=== PATIENT | female | born 1970 | race Caucasian/White ===

== ENCOUNTER 2017-09-08 12:39 | Inpatient (IN) | payer OTHER ==
[~2017-09-08] VITALS: Ht 170.2 cm; Wt 62.8 kg
--- NOTE | ~2017-09-08 | PR ---
[place], [place] PROGRESS NOTE NAME: BONI RUTH [facility] #: [id number] UNIT #: [id number] ROOM: 421 DOCTOR: SCARLET ROSENBERG MD,RIYA BIRTHDATE: [birth year] DOS: 09/12/2017 SUBJECTIVE: She has a bronchoscopy done yesterday noted reduction in symptoms of cough, still noted significant cough for this patient or intensity and frequency has been decreased. The patient has been getting intravenous antibiotic with acute streptococcal pneumonia and acute bronchitis with MRSA. The patient denies symptoms of chest pain or hemoptysis. Wheezing has been decreasing. She was continued nicotine placement patches. OBJECTIVE: VITAL SIGNS: Normal temperature, respiratory rate 18, pulse 65, blood pressure 140/84 today. Pulse oxygen saturation on 2 liters 94% saturation. HEENT: No new change. NECK: Supple. CARDIOVASCULAR: S1, S2 audible. LUNGS: Moderate decreased breath sounds, mild expiratory wheezing, no crackles. ABDOMEN: Flat, soft, nontender. EXTREMITIES: Without any edema. MUSCULOSKELETAL: No deformities. GENITOURINARY: Cranial nerves are intact. LABORATORY DATA: The patient's CBC today with the patient's WBC count normal, hemoglobin 11.3, hematocrit 33.6, otherwise remaining CBC was normal. The ____ bronchial washing many white blood cell for this patient with rate gram-positive cocci in pairs and gram-negative bacilli with few budding yeast. BMP of the patient was noted essentially normal. IMPRESSION: 1. The patient with acute pneumonia for this patient noted streptococcus with acute bronchitis. 2. The patient with history of nicotine dependence as well. 3. Acute exacerbation of chronic obstructive pulmonary disease or bronchial asthma combination of both. PLAN OF TREATMENT: Continuation of current antibiotics for the patient at this time as oral Zyvox. Monitor results of the bronchial washings. In the bronchial washing culture will be noted no bacterial growth. The patient with MRSA Zyvox will be discontinued. She will be only treated for the streptococcal pneumonia with a different antibiotic. MRSA would be considered colonization. The dose of Solu-Medrol will be continued same dose 40 mg b.i.d. Continue bronchodilators as well. Additional treatment changes will be made for the patient based on progression of the illness. Usual care, other plan of management and therapies. [place], [place] PROGRESS NOTE NAME: BONI RUTH UNIT #: [id number] ROOM: 421 DOCTOR: SCARLET ROSENBERG MD,RIYA BIRTHDATE: [birth year] RIYA NOVAK MD CM:YOUSUF [id number] RIYA ROSENBERG MD 09/12/17 1800 interface
--- NOTE | ~2017-09-08 | PROC NOTE ---
[place], [place] PROCEDURE NOTE NAME: BONI RUTH UNIT #: [id number] ROOM: 421 DOCTOR: SCARLET ROSENBERG MD,RIYA BIRTHDATE: [birth year] DOS: 09/11/2017 PREOPERATIVE DIAGNOSES: The patient with acute pneumonia with severe nonproductive cough, unable to expectorate sputum and wheezing with exacerbation of bronchial asthma as well. POSTOPERATIVE DIAGNOSES: Severely inflamed air was noted with fiber mucosa with moderate amount of secretion present in endobronchial tree bilaterally mainly in the lower lungs, removal of the mucous plugs from endobronchial tree as well. No endobronchial obstructive lesion. COMPLICATIONS: None. BLOOD LOSS: None. PROCEDURE DESCRIPTION: Informed consent obtained for the patient. She was brought to the OR and placed in supine position. Conscious sedation administered by Anesthesia Department. After that, the bronchoscope advanced to the airway into laryngeal area. Epiglottis and vocal cords were seen. They were all appeared to be normal. The bronchoscope advanced to the vocal cords, which were moving symmetrically with movements into the tracheal lumen with significant inflammatory changes noted with small scattered purulent secretions suctioned out to the scott level. After that, the scott was noted sharp. Moderate amount of purulent secretions were noted with some mucus plug, impaction of the airways bilaterally, suctioned out with the help of normal saline wash, sent for culture. Procedure well tolerated by the patient without any complications. Postoperative findings will be discussed with the patient's family members once the patient recovered the effects of acute sedation. RIYA NOVAK MD CM:PROCNOTE:PROCEDURE NOTE [id number] RIYA ROSENBERG MD
--- NOTE | ~2017-09-08 | PR ---
[place], [place] PROGRESS NOTE [facility] [id number] UNIT #: [id number] ROOM: 421 DOCTOR: SCARLET ROSENBERG MD,RIYA BIRTHDATE: [birth year] DOS: 09/14/2017 SUBJECTIVE: She has been noted quite comfortable at this time, sitting on the chair this morning. The coughing has improved markedly with symptoms of shortness of breath, tolerated the oral Zyvox without any problems. OBJECTIVE: VITAL SIGNS: For the patient shows a normal temperature, respiratory rate of 18, heart rate of 101, blood pressure 132/93. The pulse oxygen saturation on room air 98%-100% saturation. HEENT: No acute change. NECK: Supple. CARDIOVASCULAR: S1, S2 audible. LUNGS: The patient was noted with free of any wheezing or crackle. Breaths are noted mildly decreased bilaterally. ABDOMEN: Soft, nontender. LABORATORY DATA: The patient's blood culture this morning showed no bacterial growth. Chest x-ray that I ordered this morning was noted with progressive resolution of the previous noted pulmonary infiltration. IMPRESSION: 1. Resolving acute pneumonia with streptococcal pneumonia with superimposed acute bronchitis. 2. Methicillin-resistant Staphylococcus aureus, responding to treatment currently very well. PLAN OF TREATMENT: The patient could be discharged home with oral antibiotic, tapering dose prednisone. Abstinence tobacco use was recommended. Outpatient followup was suggested postdischarge as well. Supportive care therapy, plan of management and care. RIYA NOVAK MD CM:PNTRANS [phone] RIYA ROSENBERG MD 09/15/17 014 interface
--- NOTE | ~2017-09-08 | PR ---
[place], [place] PROGRESS NOTE NAME: BONI RUTH [facility] #: [id number] UNIT #: [id number] ROOM: 421 DOCTOR: SCARLET ROSENBERG MD,RIYA BIRTHDATE: [birth year] DOS: 09/11/2017 SUBJECTIVE: The patient was independently seen today [id number] encounter, history was confirmed. Physical examination was performed. All the lab available were reviewed. Any assessment changes was made in the today's visit personally as well. PHYSICAL EXAMINATION: VITAL SIGNS: For the patient which was recorded showed the temperature noted as 99.6 degrees Fahrenheit, respiratory rate of 16-20, heart rate 80-95, blood pressure 123/65-145/79. LUNGS: The patient was noted with moderate reduced breath sounds with expiratory wheezing, no crackles. ABDOMEN: Soft, nontender. EXTREMITIES: The patient was noted without any acute edema. MUSCULOSKELETAL: The patient was noted current acute deformities. SKIN: No lesions or rashes. LABORATORY DATA: Urine for legionella antigens were noted as positive. The urine for legionella antigen was negative. Sputum culture. The patient essentially shows moderate growth of MRSA. CBC of this morning: WBC count normal, hemoglobin 11.3, hematocrit 34.3, platelet count 120,000. BMP: Normal BUN and creatinine. Other labs were normal. The chest x-ray of the patient, PA lateral view, which was done this morning, the patient was reviewed. It shows pulmonary infiltration in the upper lung with ground glass opacities much more marked in the left upper than the right lung. IMPRESSION: 1. The patient was being currently noted with findings of acute respiratory failure with acute streptococcal pneumonia isolation of the methicillin-resistant Staphylococcus aureus where colonization ____ was unknown. 2. Severe persistent respiratory symptoms nonresolving with current maximal medical therapy as well. The blood culture noted as no bacterial growth from 09/08/2017. Bronchoscopy will be done at the present time with further change in treatment will be done based on the assessment bronchoscopy as necessary. She will be started on Zyvox therapy. The patient orally at the present time, which was good coverage for the methicillin-resistant Staphylococcus aureus ____ and also strep pneumonia. Additional treatment changes to be made based on progression of illness. Other supportive therapy, plan of management care. [place], [place] PROGRESS NOTE NAME: BONI RUTH UNIT #: [id number] ROOM: 421 DOCTOR: RIYA REICH MD BIRTHDATE: [birth year] RIYA NOVAK MD CM:PNDARLING [id number] RIYA ROSENBERG MD 09/11/172304 interface
--- NOTE | ~2017-09-08 | EKG ---
[place], [place] ELECTROCARDIOGRAM REPORT NAME: BONI RUTH UNIT #: [id number] ROOM: 421 DOCTOR: SCARLET ROSENBERG MD,RIYA BIRTHDATE: [birth year] DOS: 09/10/2017 The electrocardiogram was done on 09/10/2017 at 4:22 p.m. Sinus rhythm were noted normal sinus rhythm at rate of 85 beats per minute with possible electrical criteria meeting for LVH. RIYA NOVAK MD CM:EKGRPT:ELECTROCARDIOGRAM REPORT [id number] RIYA ROSENBERG MD
--- NOTE | ~2017-09-08 | PR ---
[place], [place] PROGRESS NOTE NAME: BONI RUTH [facility] #: [id number] UNIT #: [id number] ROOM: 421 DOCTOR: FRANSISCO MARTIN DO BIRTHDATE: [birth year] DOS: 09/11/2017 SUBJECTIVE: The patient seen and examined at bedside preop prior to the bronchoscopy that was scheduled to be performed this morning. The patient has no new complaints at this time. The patient continues to have shortness of breath, productive cough and sputum without hemoptysis or wheezing. No new complaints at this time. OBJECTIVE: VITAL SIGNS: Temperature 98.9, pulse is 95, respirations 16, blood pressure 150/78, pulse ox 93% on 3 liters nasal cannula. LABS: CBC and CMP were reviewed. Electrolytes, blood count and renal function are stable, no change. Serologies for acid fast staining are pending. Strep pneumo was positive. Influenza staining pending. Sputum culture from the 16 is positive for Staph aureus, MRSA. Blood cultures remain negative. Bronchial washings pending. Chest x-ray shows bilateral upper lobe pneumonia from 09/11/2017 at 8:00 this morning. PHYSICAL EXAMINATION: GENERAL APPEARANCE: The patient is alert, awake and oriented x 3, no acute distress. HEENT: Eyes are clear. Nares are patent. Mucous membranes are moist. NECK: Supple, nontender. CARDIOVASCULAR: Regular rate and rhythm, no murmurs, gallops or rubs. CHEST: Lungs, expiratory wheezing in all lung ryan with crackles appreciated in bilateral bases with diminished breath sounds in the bilateral upper lobes. No rhonchi. ABDOMEN: Soft, nontender with positive bowel sounds. EXTREMITIES: Clear of edema, erythema, clubbing and cyanosis. IMPRESSION: 1. MRSA pneumonia. 2. Acute on chronic respiratory failure with chronic obstructive pulmonary disease exacerbation. 3. Right middle lobe and left lower lobe pneumonia as seen on chest x-ray with additional right upper lobe and left upper lobe pneumonia, which was seen on the most recent chest x-ray. TREATMENT PLAN: Antibiotics will be adjusted accordingly. Look to the orders per new antibiotic regimen for the Strep pneumo. The patient can continue with DuoNebs, Mucinex, Solu-Medrol b.i.d. 40 along with pending bronchial washings. FRANSISCO MARTIN DO [place], [place] PROGRESS NOTE NAME: BONI RUTH Gurv[facility] UNIT #: [id number] ROOM: [facility] DOCTOR: FRANSISCO MARTIN DO BIRTHDATE: [birth year] RIYA NOVAK MD CM:PNTRANS [phone] FRANSISCO MARTIN DO 09/11/17 1110 interface
--- NOTE | ~2017-09-08 | CON ---
[place], [place] REPORT OF CONSULTATION NAME: BONI RUTH [facility] #: [id number] UNIT #: [id number] ROOM: 406 DOCTOR: RIYA REICH MD BIRTHDATE: [birth year] DOS: 09/10/2017 PULMONARY CONSULTATION, EVALUATION, AND MANAGEMENT CONSULTATION REQUESTED BY: Hospitalist service. REASON FOR CONSULTATION: Assess the patient for exacerbation of COPD and assessment of the current severe cough. HISTORY OF PRESENT ILLNESS: This is a 47-year-old white female patient who has been admitted to the hospital service on the date of 09/08/2017. She presented to the Emergency Room on 09/08/2017 as she has been noted with progressive increase in shortness of breath for about a week associated with coughing, initially noted with sputum expectoration, thick and purulent, and later noted to be nonproductive, but the symptoms have been noted worsened including shortness of breath. The patient was assessed in the Emergency Room. She denies any symptoms of chest pain or hemoptysis with that. The patient was noted with symptoms of wheezing as well. She has been diagnosed with influenza infection a few days ago as well. REVIEW OF SYSTEMS: CONSTITUTIONAL: Fatigue and tiredness noted without any symptoms of fever or chills at the present time. EYES: Denies burning, redness, or dryness. EARS, NOSE, AND THROAT: Denies sore throat, hoarseness, otalgia, postnasal drainage, or epistaxis. CARDIOVASCULAR: Denies anginal pain, palpitation, or edema or pain of the lower extremities on walking. MUSCULOSKELETAL: Denies acute joint pain, redness, or tenderness. GENITOURINARY SYMPTOMS: No dysuria, suprapubic pain, or hematuria. GASTROINTESTINAL SYMPTOMS: Denies any symptoms of nausea, vomiting, diarrhea, hematochezia, abdominal pain, hematemesis, or melena. Denies any dysphagia or abnormal weight loss history. SKIN: Denies lesions, rashes, or ulcers. CENTRAL NERVOUS SYSTEM: Denies dizziness, headache, diplopia, or syncopal episodes. Remaining systems were reviewed with the patient, they were noted all negative. PAST MEDICAL HISTORY: Known with: 1. History of gastroesophageal reflux. 2. General anxiety disorder and depression. 3. Chronic pain medication dependency, use of methadone. 4. Essential hypertension. 5. Bronchial asthma. SOCIAL HISTORY: The patient stated not , lives at home. She has 2 children. Tobacco use was noted for the patient since age of [age] years old, pack of cigarettes per day actively used. Denies any illicit drug use history. [place], [place] REPORT OF CONSULTATION NAME: BONI RUTH UNIT #: [id number] ROOM: 406 DOCTOR: SCARLET ROSENBERG MD,RIYA BIRTHDATE: [birth year] PAST SURGICAL HISTORY: Noted as: 1. Cholecystectomy. 2. Foot surgery. FAMILY HISTORY: Essentially noted noncontributory to her illness. HOME MEDICATIONS: Noted with use of Cymbalta, Wellbutrin, omeprazole, methadone, Topamax, hydrochlorothiazide, Celexa, Abilify, and hydroxyzine. DRUG ALLERGY HISTORY: THE PATIENT WAS NOTED ALLERGY TO: 1. IVP DYE. 2. TRAMADOL. PHYSICAL EXAMINATION: GENERAL: A 47-year-old female who has been currently sitting on the bed, noted with intermittent nonproductive cough on assessment, without any acute distress at the present time. Height recorded by the nursing staff as 5 feet 7 inches, weight 138 pounds, BMI 21.7. VITAL SIGNS: Temperature 99.1 degrees Fahrenheit to normal temperature, respiratory rate 28-24, heart rate 102-89, blood pressure 139/87-122/71. The pulse oxygen saturation on room air 89%, later on 3 L nasal cannula 90%-98% saturation. HEENT: Piercing for the patient was noted in certain parts of the body and the face. Head was atraumatic. Eyes nonicterus. NECK: Supple. CARDIOVASCULAR: S1, S2 is audible. LUNGS: Generally reduced breath sounds, diffuse expiratory wheezing. No crackles. ABDOMEN: Flat, soft, nontender. EXTREMITIES: No edema, clubbing, or cyanosis. SKIN: Visible skin, no lesions or rashes. MUSCULOSKELETAL: No deformities. CENTRAL NERVOUS SYSTEM: Cranial nerves intact. LABORATORY DATA: Lactic acid on 09/08/2017 noted as normal. The CMP of the patient that was done on 09/09/2017, BUN 26, creatinine 1.15, glucose 168. Potassium 3.2. Albumin 2.8. CBC of 09/09/2017, hemoglobin 11.3, hematocrit 33.3, platelet count was 101,000. Urine culture, no bacterial growth. CBC of the patient this morning, platelet count 129,000, WBC count normal, hemoglobin 11.6, hematocrit 33.9. The BMP of the patient of 09/10/2017, glucose 120, BUN and creatinine was normal, potassium 3.3. Phosphorus 1.6. The culture of the sputum of the patient showed normal ancelmo preliminary. Gram stain of 09/08/2017, few epithelial cells, white blood cells, moderate gram-positive cocci in pairs and clusters. Blood cultures, no bacterial growth. IMAGING STUDIES: The chest x-ray 2-view of the patient that was done was reviewed personally, shows increased interstitial marking noted, suspected pneumonia of the right middle and right lower lobes; however, the finding was noted increase in the lungs bilaterally. [place], [place] REPORT OF CONSULTATION NAME: BONI RUTH UNIT #: [id number] ROOM: 406 DOCTOR: RIYA REICH MD BIRTHDATE: [birth year] IMPRESSION: 1. The patient who has been admitted to the hospital noted with acute exacerbation, appears like bronchial asthma and COPD combination at this time with the possibility of viral infection and impaction of the mucus plug of the patient's major airway was also suspected. Thrombocytopenia mostly related to viral illness would be considered as well. 2. History of chronic nicotine dependence as well. PLAN OF MANAGEMENT: Bronchoscopy of the patient was planned to be done in the morning. Influenza A and B, nasal washing antigen of the patient will be done. Repeat another chest x-ray to assess the current abnormal finding again after 2 days of her progression. Other supportive therapy, plan of management as well as ongoing. Usual care. Additional treatment changes to be done on the patient based on the progression of the illness. Order the respiratory viral panel for this patient as well including influenza A and B washing to be done again. Monitor results of the sputum culture. Continue corticosteroids administration and the bronchodilators as well. Antibiotic at this time, which has been given to this patient, will be continued without any changes. Other supportive therapy, plan of management, and care plan. RIYA NOVAK MD CM:CONSTR:REPORT OF CONSULTATION 1515 09/11/17 0045 interface
--- NOTE | ~2017-09-08 | PR ---
[place], [place] PROGRESS NOTE NAME: BONI RUTH UNIT #: [id number] ROOM: 421 DOCTOR: SCARLET ROSENBERG MD,RIYA BIRTHDATE: [birth year] DOS: 09/13/2017 SUBJECTIVE: She has been noted comfortable, continued to show reduction in respiratory symptom, receiving IV Zyvox. The culture of the bronchial washing showed light growth of MRSA as well. She had not been noted symptoms of chest pain or hemoptysis. Eager for home discharge. OBJECTIVE: VITAL SIGNS: Low grade fever, last one 99.7 degrees Fahrenheit, afebrile this morning. Respiratory rate 20, heart rate 68, blood pressure 140/86, pulse oxygen saturation on room air 97% saturation noted. HEENT: Examination shows no acute change. NECK: Supple. CARDIOVASCULAR: S1, S2 is audible. LUNGS: The patient was noted without any wheeze or crackle at the present time. ABDOMEN: Soft, nontender. EXTREMITIES: Without any acute edema. IMPRESSION: 1. The patient with resolving acute pneumonia for streptococcal pneumonia superimposed acute bronchitis. 2. Acute exacerbation of chronic obstructive pulmonary disease/bronchial asthma. 3. History of chronic nicotine dependence. PLAN OF TREATMENT: Repeat chest x-ray in the morning to reassessment of the pneumonia prior to discharge, switching the Zyvox from intravenous to oral dose. Also, decrease the Solu-Medrol 40 mg daily. Possible discharge home in the morning on oral Zyvox and tapering dose of prednisone and other appropriate needed medications. RIYA NOVAK MD CM:PNTRANS [phone] RIYA ROSENBERG MD 09/13/17 1732 interface
[~2017-09-08 12:39] MED LIST: ABILIFY2 MG PO; CELEXA40 MG PO; VISTARIL50 MG PO; VOLTAREN75 MG PO
[2017-09-08] MEDS ORDERED: DULOXETINE HCL60 MG PO (12:47)
[2017-09-08] MEDS ORDERED: BUDEPRION XL150 MG PO (12:47)
[2017-09-08] MEDS ORDERED: OMEPRAZOLE40 MG PO (12:47)
[2017-09-08] MEDS ORDERED: METHADOSE40 MG PO (12:48)
[2017-09-08] MEDS ORDERED: HYDROCHLOROTH12.5 M2 PO (12:48)
[2017-09-08] MEDS ORDERED: TOPIRAMATE50 M2 PO (12:48)
[2017-09-08 12:58] VITALS: BP 119/69
[2017-09-08 13:51] LABS: HEMATOCRIT 38.7 % (37.0-47.0); HEMOGLOBIN 13.3 g/dl (12.0-16.0); MEAN CELL VOLUME 93.3 fl (81.0-99.0); MEAN CORPUSCULAR HGB CONC 34.4 g/dl (33.0-37.0); MEAN PLATELET VOLUME 12.1 fl (9.6-12.3); PLATELET COUNT AUTOMATED 99 10*3/uL (130-400); RED BLOOD COUNT 4.15 10*6/uL (4.10-5.10); RED CELL DISTRI WIDTH 13.5 % (0-14.5)
[2017-09-08 14:10] LABS: ALBUMIN 3.1 gm/dl (3.1-4.5); CREATININE 2.02 mg/dL (0.55-1.02); POTASSIUM 3.3 mmol/L (3.5-5.1); TOTAL PROTEIN 7.9 gm/dL (6.4-8.2)
[2017-09-08 14:19] LABS: TOTAL CELLS COUNTED 100 #CELLS
[2017-09-08 14:23] LABS: BURR CELLS FEW; PLATELET SUFFICIENCY LOW (NORMAL)
[2017-09-08 15:25] VITALS: BP 105/73
[2017-09-08 15:58] VITALS: BP 137/74
[2017-09-08 16:12] VITALS: BP 137/74
[2017-09-08 19:24] LABS: BILIRUBIN NEGATIVE (NEGATIVE); BLOOD 2+ (NEGATIVE); CLARITY CLEAR (CLEAR); COLOR YELLOW (YELLOW); GLUCOSE NEGATIVE (NEGATIVE); KETONE NEGATIVE (NEGATIVE); LEUKO ESTERASE NEGATIVE (NEGATIVE); NITRITE NEGATIVE (NEGATIVE); PH 5.5 (5.0-9.0); SPECIFIC GRAVITY <= 1.005 (1.005-1.030); UROBILINOGEN 0.2 E.U./dl (0.2-1.0)
[2017-09-08 19:30] LABS: BACTERIA 1+
[2017-09-08 20:00] VITALS: BP 110/65
[2017-09-09] VITALS: BP 108/65
[2017-09-09 07:38] LABS: HEMATOCRIT 33.3 % (37.0-47.0); HEMOGLOBIN 11.3 g/dl (12.0-16.0); MEAN CELL VOLUME 92.5 fl (81.0-99.0); MEAN CORPUSCULAR HGB 31.4 pg (27.0-31.0); MEAN CORPUSCULAR HGB CONC 33.9 g/dl (33.0-37.0); MEAN PLATELET VOLUME 11.7 fl (9.6-12.3); PLATELET COUNT AUTOMATED 101 10*3/uL (130-400); RED CELL DISTRI WIDTH 13.4 % (0-14.5); WHITE BLOOD COUNT 5.4 10*3/uL (4.8-10.8)
[2017-09-09 07:53] LABS: ALBUMIN 2.8 gm/dl (3.1-4.5); ALKALINE PHOSPHATASE 78 U/L (45-117); CHLORIDE 108 mmol/L (98-107); CHOLESTEROL 94 mg/dL (<200); CREATININE 1.15 mg/dL (0.55-1.02); HDL CHOLESTEROL 12 mg/dl (40-60); LDL CHOLESTEROL 55 mg/dL (9-159); PHOSPHOROUS 2.3 mg/dL (2.5-4.9); POTASSIUM 3.2 mmol/L (3.5-5.1); SGOT/AST 33 IU/L (3-35); SGPT/ALT 21 U/L (12-78); SODIUM 141 mmol/L (136-145); TOTAL PROTEIN 6.6 gm/dL (6.4-8.2); TRIGLYCERIDES 136 mg/dl (<150); VLDL CHOLESTEROL 27 mg/dL (6-40)
[2017-09-09 07:58] LABS: THYROID STIM HORMONE (HS) 0.131 uIU/ml (0.358-4.75)
[2017-09-09 08:00] VITALS: BP 114/71
[2017-09-09 08:01] LABS: BUN 26 mg/dl (7-24)
[2017-09-09 08:15] LABS: PLATELET SUFFICIENCY LOW (NORMAL); TOTAL CELLS COUNTED 100 #CELLS
[2017-09-09 08:40] LABS: VITAMIN D, 25-HYDROXY 35.6 ng/mL (30-100)
[2017-09-09 12:00] VITALS: BP 139/87
[2017-09-09 16:00] VITALS: BP 135/78
[2017-09-09 20:00] VITALS: BP 138/67
[2017-09-09 23:48] VITALS: BP 122/71
[2017-09-10 07:37] LABS: BASO % 0.3 % (0.0-1.0); HEMATOCRIT 33.9 % (37.0-47.0); HEMOGLOBIN 11.6 g/dl (12.0-16.0); LYMPH # 1.1 10*3/uL (1.3-4.4); LYMPH % 12.1 % (27.0-41.0); MEAN CELL VOLUME 93.9 fl (81.0-99.0); MEAN CORPUSCULAR HGB 32.1 pg (27.0-31.0); MEAN CORPUSCULAR HGB CONC 34.2 g/dl (33.0-37.0); MEAN PLATELET VOLUME 11.4 fl (9.6-12.3); MONO # 0.8 10*3/uL (0.1-1.0); MONO % 8.2 % (3.0-9.0); NEUT # 7.3 10*3/uL (2.3-7.9); NEUT % 77.6 % (47.0-73.0); PLATELET COUNT AUTOMATED 129 10*3/uL (130-400); RED BLOOD COUNT 3.61 10*6/uL (4.10-5.10); RED CELL DISTRI WIDTH 14.1 % (0-14.5); WHITE BLOOD COUNT 9.4 10*3/uL (4.8-10.8)
[2017-09-10 08:00] VITALS: BP 129/75
[2017-09-10 08:00] LABS: BUN 19 mg/dl (7-24); CHLORIDE 108 mmol/L (98-107); CREATININE 0.97 mg/dL (0.55-1.02); PHOSPHOROUS 1.6 mg/dL (2.5-4.9); POTASSIUM 3.3 mmol/L (3.5-5.1); SODIUM 140 mmol/L (136-145)
[2017-09-10 12:00] VITALS: BP 134/87
[2017-09-10 16:00] VITALS: BP 143/77
[2017-09-10 20:00] VITALS: BP 160/80
[2017-09-11] VITALS (8 sets, daily range): BP systolic 117–177; BP diastolic 60–92
[2017-09-11 06:37] LABS: BASO % 0.2 % (0.0-1.0); HEMATOCRIT 34.3 % (37.0-47.0); HEMOGLOBIN 11.3 g/dl (12.0-16.0); LYMPH # 1.2 10*3/uL (1.3-4.4); LYMPH % 12.2 % (27.0-41.0); MEAN CELL VOLUME 95.5 fl (81.0-99.0); MEAN CORPUSCULAR HGB 31.5 pg (27.0-31.0); MEAN CORPUSCULAR HGB CONC 32.9 g/dl (33.0-37.0); MEAN PLATELET VOLUME 11.4 fl (9.6-12.3); MONO # 0.8 10*3/uL (0.1-1.0); MONO % 8.5 % (3.0-9.0); NEUT # 7.5 10*3/uL (2.3-7.9); NEUT % 76.9 % (47.0-73.0); PLATELET COUNT AUTOMATED 120 10*3/uL (130-400); RED BLOOD COUNT 3.59 10*6/uL (4.10-5.10); RED CELL DISTRI WIDTH 14.3 % (0-14.5); WHITE BLOOD COUNT 9.8 10*3/uL (4.8-10.8)
[2017-09-11 06:48] LABS: BUN 16 mg/dl (7-24); CHLORIDE 106 mmol/L (98-107); CREATININE 0.91 mg/dL (0.55-1.02); POTASSIUM 3.7 mmol/L (3.5-5.1); SODIUM 143 mmol/L (136-145)
[2017-09-11] MEDS ORDERED: PROMETHAZINE25 M1 PO (10:39)
[2017-09-11] MEDS ORDERED: NEURONTIN800 MG PO (10:41)
[2017-09-11] MEDS ORDERED: MELATONIN10 M2 PO (10:42)
[2017-09-12] VITALS: BP 142/70
[2017-09-12 08:00] VITALS: BP 118/64
[2017-09-12 08:00] LABS: HEMATOCRIT 33.6 % (37.0-47.0); HEMOGLOBIN 11.3 g/dl (12.0-16.0); MEAN CELL VOLUME 93.9 fl (81.0-99.0); MEAN CORPUSCULAR HGB 31.6 pg (27.0-31.0); MEAN CORPUSCULAR HGB CONC 33.6 g/dl (33.0-37.0); MEAN PLATELET VOLUME 10.9 fl (9.6-12.3); PLATELET COUNT AUTOMATED 130 10*3/uL (130-400); RED BLOOD COUNT 3.58 10*6/uL (4.10-5.10); RED CELL DISTRI WIDTH 14.4 % (0-14.5); WHITE BLOOD COUNT 8.7 10*3/uL (4.8-10.8)
[2017-09-12 08:19] LABS: BUN 16 mg/dl (7-24); CHLORIDE 107 mmol/L (98-107); CREATININE 0.85 mg/dL (0.55-1.02); POTASSIUM 3.7 mmol/L (3.5-5.1); SODIUM 142 mmol/L (136-145)
[2017-09-12 08:25] LABS: TOTAL CELLS COUNTED 100 #CELLS; TOXIC GRANULATION MODERATE
[2017-09-12 08:26] LABS: PLATELET SUFFICIENCY NORMAL (NORMAL)
[2017-09-12 12:00] VITALS: BP 144/84
[2017-09-12 16:00] VITALS: BP 116/67
[2017-09-12 16:09] LABS: ACID FAST SMEAR Negative (.); ACID FAST SPEC PROCESSING Concentration (.)
[2017-09-12 20:00] VITALS: BP 117/69
[2017-09-13] VITALS: BP 146/83
[2017-09-13 08:00] VITALS: BP 156/92
[2017-09-13 08:29] LABS: HEMATOCRIT 37.3 % (37.0-47.0); HEMOGLOBIN 12.6 g/dl (12.0-16.0); MEAN CELL VOLUME 95.4 fl (81.0-99.0); MEAN CORPUSCULAR HGB 32.2 pg (27.0-31.0); MEAN CORPUSCULAR HGB CONC 33.8 g/dl (33.0-37.0); RED BLOOD COUNT 3.91 10*6/uL (4.10-5.10); RED CELL DISTRI WIDTH 14.3 % (0-14.5); WHITE BLOOD COUNT 8.8 10*3/uL (4.8-10.8)
[2017-09-13 08:31] LABS: PLATELET COUNT AUTOMATED 197 10*3/uL (130-400)
[2017-09-13 08:38] LABS: BUN 18 mg/dl (7-24); CHLORIDE 105 mmol/L (98-107); CREATININE 0.95 mg/dL (0.55-1.02); POTASSIUM 3.7 mmol/L (3.5-5.1); SODIUM 142 mmol/L (136-145)
[2017-09-13 09:23] LABS: PLATELET SUFFICIENCY NORMAL (NORMAL); TOTAL CELLS COUNTED 100 #CELLS; TOXIC GRANULATION MODERATE
[2017-09-13 12:00] VITALS: BP 148/86
[2017-09-13 16:00] VITALS: BP 126/82
[2017-09-13 20:00] VITALS: BP 136/84
[2017-09-14] VITALS: BP 128/87
[2017-09-14 08:00] VITALS: BP 132/93
[2017-09-14 12:00] VITALS: BP 126/85
[2017-09-14] MEDS ORDERED: LINEZOLID600 MG PO (12:04)
[2017-09-14] MEDS ORDERED: PREDNISONE10 MG PO (12:04)
[2017-09-14 16:00] VITALS: BP 122/86
[2017-09-15 01:06] LABS: ADENOVIRUS Negative (Negative); INFLUENZA A Positive (Negative); INFLUENZA B Negative (Negative); METAPNEUMOVIRUS Negative (Negative); PARAINFLUENZA 1 Negative (Negative); PARAINFLUENZA 2 Negative (Negative); PARAINFLUENZA 3 Negative (Negative); RHINOVIRUS Negative (Negative); RSV A Negative (Negative); RSV B Negative (Negative)
== END 2017-09-14 18:05 | disposition home or self-care (01) | DRG 871 ==
LOC: ED 12:39 → EDHOLD 14:52 → 4E 14:52
PROVIDERS: Family Medicine; Internal Medicine Critical Care Medicine; Physician Assistant; Student in an Organized Health Care Education/Training Program
PROC: 0B928ZZ Drainage of Carina, Via Natural or Artificial Opening Endoscopic (ICD-10-PCS; principal; 2017-09-11)
PROC: 0BC98ZZ Extirpation of Matter from Lingula Bronchus, Via Natural or Artificial Opening Endoscopic (ICD-10-PCS; 2017-09-11)
PROC: 0BC48ZZ Extirpation of Matter from Right Upper Lobe Bronchus, Via Natural or Artificial Opening Endoscopic (ICD-10-PCS; 2017-09-11)
PROC: 0BC88ZZ Extirpation of Matter from Left Upper Lobe Bronchus, Via Natural or Artificial Opening Endoscopic (ICD-10-PCS; 2017-09-11)
PROC: 0BC58ZZ Extirpation of Matter from Right Middle Lobe Bronchus, Via Natural or Artificial Opening Endoscopic (ICD-10-PCS; 2017-09-11)
PROC: 0BC38ZZ Extirpation of Matter from Right Main Bronchus, Via Natural or Artificial Opening Endoscopic (ICD-10-PCS; 2017-09-11)
PROC: 0BC78ZZ Extirpation of Matter from Left Main Bronchus, Via Natural or Artificial Opening Endoscopic (ICD-10-PCS; 2017-09-11)
PROC: 0BC68ZZ Extirpation of Matter from Right Lower Lobe Bronchus, Via Natural or Artificial Opening Endoscopic (ICD-10-PCS; 2017-09-11)
PROC: 0BCB8ZZ Extirpation of Matter from Left Lower Lobe Bronchus, Via Natural or Artificial Opening Endoscopic (ICD-10-PCS; 2017-09-11)
PROC: 0BC18ZZ Extirpation of Matter from Trachea, Via Natural or Artificial Opening Endoscopic (ICD-10-PCS; 2017-09-11)
DX: A41.9 Sepsis, unspecified organism (principal); N17.0 Acute kidney failure with tubular necrosis; J96.20 Acute and chronic respiratory failure, unspecified whether with hypoxia or hypercapnia; J15.212 Pneumonia due to Methicillin resistant Staphylococcus aureus; D69.6 Thrombocytopenia, unspecified; E44.0 Moderate protein-calorie malnutrition; J13 Pneumonia due to Streptococcus pneumoniae; E87.1 Hypo-osmolality and hyponatremia; F33.9 Major depressive disorder, recurrent, unspecified; J44.1 Chronic obstructive pulmonary disease with (acute) exacerbation; F11.20 Opioid dependence, uncomplicated; J44.0 Chronic obstructive pulmonary disease with (acute) lower respiratory infection; E87.6 Hypokalemia; K21.9 Gastro-esophageal reflux disease without esophagitis; F41.1 Generalized anxiety disorder; B18.2 Chronic viral hepatitis C; I10 Essential (primary) hypertension; J20.9 Acute bronchitis, unspecified; G89.29 Other chronic pain; R65.20 Severe sepsis without septic shock; D72.9 Disorder of white blood cells, unspecified; R74.0 Nonspecific elevation of levels of transaminase and lactic acid dehydrogenase [LDH]; Z72.0 Tobacco use; Z71.6 Tobacco abuse counseling; Z88.8 Allergy status to other drugs, medicaments and biological substances; Z91.041 Radiographic dye allergy status; Z79.899 Other long term (current) drug therapy; Z90.49 Acquired absence of other specified parts of digestive tract; Z81.8 Family history of other mental and behavioral disorders; Z83.6 Family history of other diseases of the respiratory system; Z22.322 Carrier or suspected carrier of Methicillin resistant Staphylococcus aureus; Z68.21 Body mass index [BMI] 21.0-21.9, adult

== ENCOUNTER → 2018-02-10 | Outpatient (CLI) | payer OTHER ==
[~2018-02-10] MED LIST changes: +BUDEPRION XL150 MG PO; +DULOXETINE HCL60 MG PO; +HYDROCHLOROTH12.5 M2 PO; +LINEZOLID600 MG PO; +MELATONIN10 M2 PO; +METHADOSE40 MG PO; +NEURONTIN800 MG PO; +OMEPRAZOLE40 MG PO; +PREDNISONE10 MG PO; +PROMETHAZINE25 M1 PO; +TOPIRAMATE50 M2 PO
== END | disposition home or self-care (01) ==
LOC: RAD 14:00
DX: R05 Cough (principal)

== ENCOUNTER 2024-07-09 11:48 | Emergency (ER) | payer OTHER ==
[~2024-07-09] VITALS: Ht 170.1 cm; Wt 58.1 kg
[2024-07-09 11:56] VITALS: BP 126/67
[2024-07-09] MEDS ORDERED: ROSUVASTATIN CAL5 MG PO (11:57)
[2024-07-09] MEDS ORDERED: PANTOPRAZOLE SO40 MG PO (11:58)
[2024-07-09] MEDS ORDERED: BREYNA 80-4.510.3 GM INH (11:58)
[2024-07-09] MEDS ORDERED: FLUTICASONE PRO15 GM INH (11:59)
== END 2024-07-09 13:36 | disposition home or self-care (01) ==
LOC: ED 11:48
DX: S93.401A Sprain of unspecified ligament of right ankle, initial encounter (principal); J45.909 Unspecified asthma, uncomplicated; Z91.041 Radiographic dye allergy status; Z88.5 Allergy status to narcotic agent; Z90.49 Acquired absence of other specified parts of digestive tract; Z98.890 Other specified postprocedural states; Z72.0 Tobacco use; W10.8XXA Fall (on) (from) other stairs and steps, initial encounter; Y93.01 Activity, walking, marching and hiking; Y92.89 Other specified places as the place of occurrence of the external cause; Y99.8 Other external cause status

== ENCOUNTER 2025-01-08 22:39 | Emergency (ER) | payer OTHER ==
[~2025-01-08] VITALS: Ht 170.1 cm; Wt 59.0 kg
[~2025-01-08 22:39] MED LIST changes: +BREYNA 80-4.510.3 GM INH; +FLUTICASONE PRO15 GM INH; +PANTOPRAZOLE SO40 MG PO; +ROSUVASTATIN CAL5 MG PO
[2025-01-08 23:10] VITALS: BP 131/98
[2025-01-08] MEDS ORDERED: methylPREDNISolone sod succ 125 MG VIAL IM ONE (23:30)
[2025-01-08] MEDS ORDERED: CEPHALEXIN 500 MG CAP PO ONE (23:30)
[2025-01-08] MEDS ORDERED: CEPHALEXIN500 M1 PO (23:31)
== END 2025-01-08 23:46 | disposition home or self-care (01) ==
LOC: ED 22:39
DX: L03.115 Cellulitis of right lower limb (principal); Z91.041 Radiographic dye allergy status; Z88.8 Allergy status to other drugs, medicaments and biological substances; Z79.899 Other long term (current) drug therapy; Z90.49 Acquired absence of other specified parts of digestive tract; Z98.890 Other specified postprocedural states

== ENCOUNTER 2025-01-15 04:47 | Emergency (ER) | payer OTHER ==
[~2025-01-15] VITALS: Ht 162.5 cm; Wt 54.4 kg
[~2025-01-15 04:47] MED LIST changes: +CEPHALEXIN500 M1 PO
[2025-01-15 04:57] VITALS: BP 155/88
[2025-01-15 05:45] LABS: BUN 12 mg/dl (9-23); CHLORIDE 101 mmol/L (98-107); POTASSIUM 3.5 mmol/L (3.4-5.1)
[2025-01-15 06:10] LABS: BASO % 0.3 % (0.0-1.0); EOS # 0.2 10*3/uL (0.0-0.4); EOS % 1.6 % (1.0-4.0); HEMATOCRIT 43.5 % (37.0-47.0); MEAN CELL VOLUME 94.8 fl (81.0-99.0); MEAN CORPUSCULAR HGB 30.9 pg (27.0-31.0); MEAN CORPUSCULAR HGB CONC 32.6 g/dl (33.0-37.0); MEAN PLATELET VOLUME 10.3 fl (9.6-12.3); MONO # 0.6 10*3/uL (0.1-1.0); MONO % 6.3 % (3.0-9.0); NEUT # 6.2 10*3/uL (2.3-7.9); NEUT % 65.9 % (47.0-73.0); PLATELET COUNT AUTOMATED 234 10*3/uL (130-400); RED BLOOD COUNT 4.59 10*6/uL (4.10-5.10); RED CELL DISTRI WIDTH 13.5 % (0-14.5); WHITE BLOOD COUNT 9.5 10*3/uL (4.8-10.8)
[2025-01-15] MEDS ORDERED: VIBRAMYCIN100 MG PO ×2 (09:14→09:15)
== END 2025-01-15 09:21 | disposition home or self-care (01) ==
LOC: ED 04:47
PROVIDERS: Internal Medicine
DX: L03.115 Cellulitis of right lower limb (principal); L81.8 Other specified disorders of pigmentation; J45.909 Unspecified asthma, uncomplicated; Z91.041 Radiographic dye allergy status; Z88.5 Allergy status to narcotic agent; Z90.49 Acquired absence of other specified parts of digestive tract; Z98.890 Other specified postprocedural states; Z72.0 Tobacco use